=== PATIENT | female | born 1990 | race African-American/Black ===

== ENCOUNTER 2017-05-10 07:56 | Day surgery (SDC) | payer OTHER ==
[~2017-05-10] VITALS: Ht 157.5 cm; Wt 61.2 kg
[~2017-05-10 07:56] MED LIST: CHILDREN'S100 MG/51 PO; FERGON324 MG PO; IBUPROFEN800 MG PO; MIRENA1 EACH IY; PRENATAL TABLE1 EAC3 PO; ZANTAC150 MG PO; ZOFRAN ODT4 MG PO
[2017-05-10 08:31] VITALS: BP 111/54
[2017-05-10] MEDS ORDERED: ROXICODONE5 MG PO (10:58)
[2017-05-10 14:16] VITALS: BP 101/59
[2017-05-10 15:37] VITALS: BP 108/56
[2017-05-10 16:25] VITALS: BP 90/54
== END 2017-05-10 16:43 | disposition home or self-care (01) ==
LOC: SDC 07:56
PROVIDERS: Student in an Organized Health Care Education/Training Program
PROC: 0WQF4ZZ Repair Abdominal Wall, Percutaneous Endoscopic Approach (ICD-10-PCS; principal; 2017-05-10)
DX: K43.0 Incisional hernia with obstruction, without gangrene (principal); K21.9 Gastro-esophageal reflux disease without esophagitis; Z88.0 Allergy status to penicillin; F17.200 Nicotine dependence, unspecified, uncomplicated
CPT/HCPCS: 84703; C1781; J0131; J1100; J1170; J1885; J2175; J2250; J2710; J2795; J3010